=== PATIENT | female | born 1950 ===

== ENCOUNTER 2017-05-21 15:18 | Emergency (ER) | payer MEDICARE, MEDICAID ==
[2017-05-21 15:34] VITALS: BP 158/90; PULSE 84; RESP 16; TEMP 97.9; O2SAT 100
[2017-05-21] MEDS ORDERED: Lidocaine 5% Patch TD ONE ×2 (15:55→16:31)
--- NOTE | 2017-05-21 16:12 | ED PDOC ---
HPI: Back Time Seen by Provider: 05/21/17 15:41 Chief Complaint (Nursing): Back Pain Chief Complaint (Provider): Lower Back pain History Per: Patient History/Exam Limitations: no limitations Onset/Duration Of Symptoms: Days (1) Current Symptoms Are (Timing): Still Present Quality Of Discomfort: "Pain" Previous Symptoms: None Associated Symptoms: Other (urinary frequency) Additional Complaint(s): 66 y/o F with PMHx of HTN and brain tumor resection 5 years ago presents to ED c /o lower back pain since yesterday morning when she woke up. Admits lifting her daughter with cerebral palsy 2 days before the onset of pain but she did not feel any pain at the time. Previous episodes of back pain in the past have been mild. Denies LE numbness, tingling. Denies incontinence, headaches, vomiting, long use of steroids, night sweats, fever, loss of sensation. Denies recent trauma. She has been taking Tylenol and Percocet PRN for pain since yesterday with some improvement. Pain is worse while sitting. - Risk Factors AAA Risk Factors: Pos: Older Than 49 Years Of Age, Hypertension Past Medical History Reviewed: Nursing Documentation, Vital Signs Vital Signs: Last Vital Signs Temp 97.9 F 05/21/17 15:26 Pulse 84 05/21/17 15:26 Resp 16 05/21/17 15:26 BP 158/90 H 05/21/17 15:26 Pulse Ox 100 05/21/17 15:26 - Medical History PMH: Asthma, HTN, Hypercholesterolemia - Surgical History Other surgeries: Brain tumor - Family History Family History: States: Unknown Family Hx - Social History Current smoker - smoking cessation education provided: Yes - Immunization History Hx Tetanus Toxoid Vaccination: No - Home Medications Home Medications: Ambulatory Orders Medication Instructions Recorded Albuterol HFA [Ventolin HFA 90 2 puff IH Q4H PRN 07/26/16 mcg/actuation (8 g)] Azelastine HCl [Astepro] 1 spray DOLORES BID PRN 07/26/16 Budesonide/Formoterol Fumarate 2 puff IH Q12H 07/26/16 [Symbicort 160-4.5 Mcg Inhaler] Ezetimibe [Zetia] 10 mg PO DAILY 07/26/16 Icosapent Ethyl [Vascepa] 2 gm PO BID 07/26/16 LORazepam [Ativan] 1 mg PO BID PRN 07/26/16 Meclizine HCl [Meclizine HCl] 12.5 mg PO TID PRN 07/26/16 Montelukast [Singulair] 10 mg PO HS 07/26/16 Naloxegol Oxalate [Movantik] 25 mg PO DAILY PRN 07/26/16 Rosuvastatin Calcium [Crestor] 10 mg PO DAILY 07/26/16 Sertraline [Zoloft] 50 mg PO HS 07/26/16 Valsartan [Diovan] 160 mg PO DAILY 07/26/16 Zolpidem [Ambien] 10 mg PO HS 07/26/16 oxyCODONE/Acetaminophen [Percocet 1 tab PO Q4H PRN 07/26/16 5/325 mg Tab] Ibuprofen [Motrin] 600 mg PO TID 7 Days 07/27/16 Lidocaine 5% [Lidoderm] 1 ea TD DAILY PRN #30 patch 05/21/17 Naproxen [Naprosyn] 1 tab PO BID PRN #60 tab 05/21/17 - Allergies Allergies/Adverse Reactions: Allergies Allergy/AdvReac Type Severity Reaction Status Date / Time No Known Allergies Allergy Verified 07/26/16 12:13 Review of Systems ROS Statement: Except As Marked, All Systems Reviewed And Found Negative Genitourinary Female: Positive for: Frequency Musculoskeletal: Positive for: Back Pain Physical Exam - Reviewed Nursing Documentation Reviewed: Yes Vital Signs Reviewed: Yes - Physical Exam Appears: Positive for: Non-toxic, No Acute Distress Head Exam: Positive for: NORMAL INSPECTION Skin: Positive for: Normal Color, Warm Cardiovascular/Chest: Positive for: Regular Rate, Rhythm. Negative for: Gallop Respiratory: Positive for: Normal Breath Sounds. Negative for: Rales, Wheezing Gastrointestinal/Abdominal: Positive for: Soft, Tenderness (RUQ mild). Negative for: Distended, Guarding, Rebound Back: Negative for: L CVA Tenderness, R CVA Tenderness, Vertebral Tenderness Extremity: Negative for: Tenderness, Pedal Edema Neurologic/Psych: Positive for: Alert, Oriented. Negative for: Motor/Sensory Deficits - ECG O2 Sat by Pulse Oximetry: 100 - Progress ED Course And Treament: Xray report + for multilevel DJD worse L3-L4. No Fx. Pain improved with meds. Urine neg. Disposition - Clinical Impression Clinical Impression: Back pain - Patient ED Disposition Is Patient to be Admitted: No Counseled Patient/Family Regarding: Diagnosis - Disposition Disposition: Routine/Home Disposition Time: 17:25 Condition: IMPROVED Additional Instructions: F/U with PMD in 2-3 days. Return to ED if worsening of the pain, incontinence, numbness or tingling in the LE or any other concerns Prescriptions: Lidocaine 5% [Lidoderm] 1 ea TD DAILY PRN #30 patch PRN Reason: PAIN Naproxen [Naprosyn] 1 tab PO BID PRN #60 tab PRN Reason: Pain Instructions: Acute Low Back Pain (ED) Forms: [facility] (Lithuanian) Print Language: URDU
--- NOTE | 2017-05-21 16:20 | RAD ---
PROCEDURE: Radiographs of the Lumbar Spine. HISTORY: Back pain COMPARISON: No prior. FINDINGS: BONES: There is mild levocurvature in the lumbar spine. There is normal alignment of the lumbar vertebral bodies. Lumbar lordosis is maintained. There is diffuse bone demineralization. There is no acute fracture. DISC SPACES: There is moderate multilevel degenerative disc disease with anterior osteophytes, reduced disc heights and multilevel facet arthropathy, worse at L3-4. OTHER FINDINGS: There are no pathologic soft tissue calcifications. Both sacroiliac joints are normal. IMPRESSION: No acute fracture. Multilevel degenerative disc disease, worse at L3-4.
== END 2017-05-21 17:37 | disposition home or self-care (01) ==
LOC: H.ER 15:18
DX: M54.5 Low back pain (principal)
CPT/HCPCS: 72100; 96372; 99282; J1885